=== PATIENT | female | born 1970 | race Caucasian/White ===

== ENCOUNTER 2017-11-18 10:34 | Emergency (ER) | payer SELFPAY ==
[~2017-11-18] VITALS: Ht 154.9 cm; Wt 39.0 kg
[2017-11-18 10:38] VITALS: BP 131/69; PULSE 81; RESP 16; TEMP 97.5; O2SAT 99
[2017-11-18] MEDS ORDERED: LEVO75TA3 PO (10:49)
[2017-11-18] MEDS ORDERED: OXYC1TAB36 PO (10:49)
[2017-11-18] MEDS ORDERED: ROPI1TAB72 PO (10:49)
[2017-11-18] MEDS ORDERED: ATEN50TA PO (10:49)
[2017-11-18] MEDS ORDERED: ROBA500T PO (10:58)
--- NOTE | 2017-11-18 10:59 | PD ---
HPI Chief Complaint: Musculoskeletal Complaint Time Seen by Provider: 10:45 Travel History International Travel<30 days: No Contact w/Intl Traveler<30days: No Traveled to known affect area: No History of Present Illness HPI 47-year-old female presents for history of scoliosis presents emergency department with severe muscle spasms to the right neck. Patient states that this started approximately 2 days ago and she has tried multiple regimens to include heat, acupressure, and stretching. Patient does take pain medication as well but this has not been helping her pain. States her pain is mild to moderate and nonradiating. Movement of her neck worsens her pain. Says she had a similar incident approximately to 2 years ago where she received a muscle relaxer and some other form of injection and she improved significantly. She is concerned because she has to drive to [place] in approximately 1 week and she cannot be this pain while driving. She denies any trauma. Denies radicular symptoms. She is not taken any ibuprofen today. PFSH Past Medical History Medical other: Yes (IBS, KIDNEY STONES) Musculoskeletal: Yes (SCOLIOSIS) Thyroid Disease: Yes ?: Not Past Surgical History Hysterectomy: Yes Tonsillectomy: Yes Social History Alcohol Use: No Tobacco Use: Yes (1/2PPD) Substance Use: No Allergies-Medications (Allergen,Severity, Reaction): Coded Allergies: No Known Allergies (Unverified , 11/18/17) Reported Meds & Prescriptions Reported Meds & Active Scripts Active Reported Oxycodone-Acetaminophen 10-325 mg Tab 1 Tab PO QID Requip (Ropinirole) 1 Mg Tab 1 Mg PO HS Levothyroxine (Levothyroxine Sodium) 75 Mcg Tab 75 Mcg PO DAILY Atenolol 50 Mg Tab 50 Mg PO DAILY Review of Systems Except as stated in HPI: all other systems reviewed are Neg Physical Exam Narrative GENERAL: Well-nourished, well-developed patient. SKIN: Focused skin assessment warm/dry. HEAD: Normocephalic. EYES: No scleral icterus. No injection or drainage. NECK: Supple, trachea midline. No JVD or lymphadenopathy. Significant muscle tension to the SCM's and upper trapezius. Midline scar along back. CARDIOVASCULAR: Regular rate and rhythm without murmurs, gallops, or rubs. RESPIRATORY: Breath sounds equal bilaterally. No accessory muscle use. GASTROINTESTINAL: Abdomen soft, non-tender, nondistended. MUSCULOSKELETAL: No cyanosis, or edema. Grade 5 out of 5 strength upper extremities. BACK: Nontender without obvious deformity. No CVA tenderness. No midline tenderness Data Data Last Documented VS Vital Signs Date Time Temp Pulse Resp B/P (MAP) Pulse Ox O2 Delivery O2 Flow Rate FiO2 11/18/17 10:38 97.5 81 16 131/69 (89) 99 Orders Orders Ketorolac Inj (Toradol Inj) (11/18/17 11:00) Orphenadrine Inj (Norflex Inj) (11/18/17 11:00) [facility] Medical Decision Making Medical Screen Exam Complete: Yes Emergency Medical Condition: Yes Differential Diagnosis Torticollis, muscle spasms, neck strain Narrative Course 47-year-old female presents for history of scoliosis presents emergency department with severe muscle spasms to the right neck. Patient states that this started approximately 2 days ago and she has tried multiple regimens to include heat, acupressure, and stretching. Patient does take pain medication as well but this has not been helping her pain. States her pain is mild to moderate and nonradiating. Movement of her neck worsens her pain. Says she had a similar incident approximately to 2 years ago where she received a muscle relaxer and some other form of injection and she improved significantly. She is concerned because she has to drive to [place] in approximately 1 week and she cannot be this pain while driving. She denies any trauma. Denies radicular symptoms. She is not taken any ibuprofen today. Vital signs stable. Toradol and Norflex administer the emergency department. Patient will be discharged Robaxin. Advised to continue acupressure and stretching especially when taking Robaxin. Follow up with the primary care physician. Return to the emergency department for worsening or persistent symptoms. Diagnosis Primary Impression: Torticollis Referrals: Primary Care Physician Patient Instructions: General Instructions, Spasmodic Torticollis (ED) Additional Instructions: Use ice or heat for symptom relief. Elevate the joint above the heart to reduce swelling. If symptoms persist or worsen, return to the emergency department. Follow up with your primary care physician within 2 days. Scripts Methocarbamol (Robaxin) 500 Mg Tab 500 MG PO TID for Muscle Spasm for 5 Days, TAB 0 Refills Prov: Elis Gupta 11/18/17 Disposition: 01 DISCHARGE HOME Condition: Stable Elis Gupta Nov 18, 2017 10:59
[2017-11-18] MEDS ORDERED: ORPHENADRINE INJ 60 MG/2 ML AMP IM ONE (11:00)
[2017-11-18] MEDS ORDERED: KETOROLAC TROMETHAMINE 60 MG/2 ML (IM) VIAL IM ONE (11:00)
== END 2017-11-18 11:22 | disposition home or self-care (01) ==
LOC: PHEFT 10:34
DX: M43.6 Torticollis (principal); M41.9 Scoliosis, unspecified; E07.9 Disorder of thyroid, unspecified; F17.200 Nicotine dependence, unspecified, uncomplicated; Z79.899 Other long term (current) drug therapy; Z87.19 Personal history of other diseases of the digestive system; Z87.442 Personal history of urinary calculi
CPT/HCPCS: 96372; 99284; J1885; J2360